=== PATIENT | female | born 1995 | race American Indian/Alaskan Native ===

== ENCOUNTER 2016-07-06 20:00 | Emergency (ER) | payer SELFPAY ==
[2016-07-06 21:02] VITALS: BP 136/81
[2016-07-06 22:10] LABS: Bilirubin,Urine NEG (Negative); Blood,Urine SM (Negative); Ketones,Urine 80 mg/dL (Negative); Leukocyte Esterase,Urine MOD (Negative); Mucus,Urine 3+ /HPF; Nitrite,Urine NEG (Negative)
[2016-07-06 22:34] LABS: Basophils % (Auto) 0.1 % (0.0-1.8); Eosinophils % (Auto) 0.2 % (0.0-4.3); Hematocrit 42.2 % (30.3-42.9); Hemoglobin 14.1 gm/dl (10.1-14.3); Mean Corpuscular HGB Conc 34 % (30-34); Mean Corpuscular Hemoglobin 31 pg (28-32); Mean Corpuscular Volume 93 fl (79-97); Platelet Count 268 K/mm3 (140-440); Red Blood Count 4.53 M/mm3 (3.65-5.03); Red Cell Distribution Width 13.2 % (13.2-15.2); White Blood Count 10.9 K/mm3 (4.5-11.0)
[2016-07-06 22:56] LABS: Alanine Aminotransferase 46 units/L (7-56); Albumin 4.3 g/dL (3.9-5); Albumin/Globulin Ratio 1.2 %; Alkaline Phosphatase 73 units/L (35-129); Anion Gap 20 mmol/L; Bilirubin,Total 0.6 mg/dL (0.1-1.2); Blood Urea Nitrogen 6 mg/dL (7-17); Calcium 9.2 mg/dL (8.4-10.2); Carbon Dioxide 25 mmol/L (22-30); Chloride 97.3 mmol/L (98-107); Glucose 85 mg/dL (65-100); Lipase 11 units/L (13-60); Potassium 3.4 mmol/L (3.6-5.0); Sodium 139 mmol/L (137-145); Total Protein 7.8 g/dL (6.3-8.2)
== END 2016-07-07 01:09 | disposition left against medical advice (07) ==
LOC: ED 20:00
DX: R10.9 Unspecified abdominal pain (principal); R11.2 Nausea with vomiting, unspecified; R19.7 Diarrhea, unspecified; Z53.21 Procedure and treatment not carried out due to patient leaving prior to being seen by health care provider
CPT/HCPCS: 36415; 80053; 81001; 81025; 83690; 85025

== ENCOUNTER 2017-12-01 21:53 | Emergency (ER) | payer SELFPAY ==
[2017-12-01] MEDS ORDERED: TYLENOL #3 PO ONE (22:23)
[2017-12-01] MEDS ORDERED: MOTRIN PO ONE (22:23)
--- NOTE | 2017-12-01 22:26 | Emergency Department Report ---
ED ENT HPI - General Chief complaint: Dental/Oral Stated complaint: TOOTH ACHE Time Seen by Provider: 12/01/17 22:21 Source: patient Mode of arrival: Ambulatory Limitations: No Limitations - History of Present Illness Initial comments: 22-year-old female presents with complaint of one year of intermittent right lower and left upper toothache. Patient has several dental cavities which she has not yet had addressed by dentist. Patient is awake alert and oriented 3 no audible wheezing or stridor no trismus or drooling on exam. Denies fevers chills nausea or vomiting. Patient states she is attempting to make outpatient follow-up with a dentist to have her cavities addressed. MD complaint: tooth pain Onset/Timin -: year(s) Location: tooth # 1 - Cavity 2 - Cavity Severity: severe Severity scale (0 -10): 7 Quality: aching Consistency: intermittent Worsens with: eating Context- Dental: history of dental caries, poor dental care Associated Symptoms: toothache - Related Data Previous Rx's Medication Instructions Recorded Last Taken Type Acetaminophen/Codeine [Tylenol 1 tab PO Q6H PRN #12 tab 12/01/17 Unknown Rx /Codeine # 3 tab] Amoxicillin [Trimox CAP] 500 mg PO Q8H #30 capsule 12/01/17 Unknown Rx Benzocaine [Oral Pain Reliever] 1 applicatio MM TID PRN #1 12/01/17 Unknown Rx cream..g. Chlorhexidine Mouthwash [Peridex] 15 ml MM BID #1 bottle 12/01/17 Unknown Rx Ibuprofen [Motrin] 600 mg PO Q8H PRN #30 tablet 12/01/17 Unknown Rx Allergies Allergy/AdvReac Type Severity Reaction Status Date / Time No Known Allergies Allergy Unverified 07/06/16 21:00 ED Dental HPI - General Chief complaint: Dental/Oral Stated complaint: TOOTH ACHE Time Seen by Provider: 12/01/17 22:21 Source: patient Mode of arrival: Ambulatory Limitations: No Limitations - Related Data Previous Rx's Medication Instructions Recorded Last Taken Type Acetaminophen/Codeine [Tylenol 1 tab PO Q6H PRN #12 tab 12/01/17 Unknown Rx /Codeine # 3 tab] Amoxicillin [Trimox CAP] 500 mg PO Q8H #30 capsule 12/01/17 Unknown Rx Benzocaine [Oral Pain Reliever] 1 applicatio MM TID PRN #1 12/01/17 Unknown Rx cream..g. Chlorhexidine Mouthwash [Peridex] 15 ml MM BID #1 bottle 12/01/17 Unknown Rx Ibuprofen [Motrin] 600 mg PO Q8H PRN #30 tablet 12/01/17 Unknown Rx Allergies Allergy/AdvReac Type Severity Reaction Status Date / Time No Known Allergies Allergy Unverified 07/06/16 21:00 ED Review of Systems ROS: Stated complaint: TOOTH ACHE Other details as noted in HPI Constitutional: denies: chills, fever Eyes: denies: eye pain, eye discharge, vision change ENT: dental pain. denies: ear pain, throat pain Respiratory: denies: cough, shortness of breath, wheezing Cardiovascular: denies: chest pain, palpitations Endocrine: no symptoms reported Gastrointestinal: denies: abdominal pain, nausea, diarrhea Genitourinary: denies: urgency, dysuria, discharge Musculoskeletal: denies: back pain, joint swelling, arthralgia Skin: denies: rash, lesions Neurological: denies: headache, weakness, paresthesias Psychiatric: denies: anxiety, depression Hematological/Lymphatic: denies: easy bleeding, easy bruising ED Past Medical Hx - Past Medical History Previous Medical History?: No - Surgical History Past Surgical History?: No - Social History Smoking Status: Current Every Day Smoker Substance Use Type: None, Marijuana - Medications Home Medications: Home Medications Medication Instructions Recorded Confirmed Last Taken Type Acetaminophen/Codeine [Tylenol 1 tab PO Q6H PRN #12 tab 12/01/17 Unknown Rx /Codeine # 3 tab] Amoxicillin [Trimox CAP] 500 mg PO Q8H #30 capsule 12/01/17 Unknown Rx Benzocaine [Oral Pain Reliever] 1 applicatio MM TID PRN #1 12/01/17 Unknown Rx cream..g. Chlorhexidine Mouthwash [Peridex] 15 ml MM BID #1 bottle 12/01/17 Unknown Rx Ibuprofen [Motrin] 600 mg PO Q8H PRN #30 tablet 12/01/17 Unknown Rx ED Physical Exam - General Limitations: No Limitations General appearance: alert, in no apparent distress - Head Head exam: Present: atraumatic, normocephalic - Eye Eye exam: Present: normal appearance, PERRL, EOMI - ENT ENT exam: Present: mucous membranes moist - Expanded ENT Exam Expanded Teeth exam: Present: dental caries, fractured tooth #, dental tenderness # 1 - Dental Tenderness (significant cavity to pulp of tooth here) 2 - Dental Tenderness (large cavity in this molar here) - Neck Neck exam: Present: normal inspection - Respiratory Respiratory exam: Present: normal lung sounds bilaterally. Absent: respiratory distress - Cardiovascular Cardiovascular Exam: Present: regular rate, normal rhythm. Absent: systolic murmur, diastolic murmur, rubs, gallop - GI/Abdominal GI/Abdominal exam: Present: soft, normal bowel sounds - Extremities Exam Extremities exam: Present: normal inspection - Back Exam Back exam: Present: normal inspection - Neurological Exam Neurological exam: Present: alert, oriented X3 - Psychiatric Psychiatric exam: Present: normal affect, normal mood - Skin Skin exam: Present: warm, dry, intact, normal color. Absent: rash ED Course Vital Signs 12/01/17 22:01 Temperature 98.3 F Pulse Rate 99 H Respiratory 14 Rate Blood Pressure 117/66 O2 Sat by Pulse 99 Oximetry ED Medical Decision Making - Medical Decision Making A/P: dental cavities, toothache, periodontal disease 1- Motrin when necessary, amoxicillin ten-day course, Orajel when necessary, Peridex mouthwash daily basis, short course codeine when necessary, 2- I provided patient with information for multiple dental clinics to follow up and stressed the importance of dental follow-up as he has multiple cavities that require dental fixation or instrumentation 3- no clinical signs of facial abscess, no Cesar's angina, no induration or cellulitis of floor of mouth or tongue 4- patient able to tolerate by mouth before discharge 5- no signs of facial infection. Advised patient that if he does not take antibiotics with follow-up with a dentist as soon as possible that a can result in potentially serious or dangerous infection to develop in jaw or face. Patient states that he understood these instructions. I advised patient to return to the ED for any persistent unrelenting nausea or vomiting fever or chills or headaches. Critical care attestation.: If time is entered above; I have spent that time in minutes in the direct care of this critically ill patient, excluding procedure time. ED Disposition Clinical Impression: Dental cavities, Toothache, Periodontal disease Disposition: TO HOME OR SELFCARE Is pt being admited?: No Does the pt Need Aspirin: No Condition: Stable Instructions: Dental Caries (ED), Toothache (ED) Prescriptions: Acetaminophen/Codeine [Tylenol /Codeine # 3 tab] 1 tab PO Q6H PRN #12 tab PRN Reason: Toothache Amoxicillin [Trimox CAP] 500 mg PO Q8H #30 capsule Benzocaine [Oral Pain Reliever] 1 applicatio MM TID PRN #1 cream..g. PRN Reason: Toothache Chlorhexidine Mouthwash [Peridex] 15 ml MM BID #1 bottle Ibuprofen [Motrin] 600 mg PO Q8H PRN #30 tablet PRN Reason: Pain Referrals: [facility] [Outside] - 3-5 Days [facility] [Outside] - 3-5 Days Forms: Accompanied Note Time of Disposition: 22:25
[2017-12-01 22:41] VITALS: BP 146/82
== END 2017-12-01 22:39 | disposition home or self-care (01) ==
LOC: ED 21:53
DX: K02.9 Dental caries, unspecified (principal); K05.6 Periodontal disease, unspecified; F17.200 Nicotine dependence, unspecified, uncomplicated; F12.10 Cannabis abuse, uncomplicated
CPT/HCPCS: 99282

== ENCOUNTER 2019-05-28 20:51 | Inpatient (IN) | payer OTHER ==
[2019-05-28] MEDS: LACTATED RINGERS 1,000 ML IV SCH (22:15)
[2019-05-28] MEDS ORDERED: MINERAL OIL 30 ML ORAL LIQD PO PRN (22:44)
[2019-05-28] MEDS ORDERED: TERBUTALINE 1 MG/1 ML INJ IVP PRN (22:44)
[2019-05-28] MEDS ORDERED: LIDOCAINE (2%) 20 MG/1 ML VIAL 20 ML MDV INFILTRATI ONE (22:44)
[2019-05-28] MEDS ORDERED: NALOXONE 0.4 MG/1 ML INJ IV PRN (22:44)
[2019-05-28] MEDS ORDERED: ePHEDrine SULFATE 50 MG/1 ML INJ IV PRN (22:44)
[2019-05-28] MEDS ORDERED: DINOPROSTONE 10 MG VAG SUPP VG ONE (22:44)
[2019-05-28] MEDS ORDERED: fentaNYL 100 MCG/2 ML INJ IV PRN (22:44)
[2019-05-28] MEDS ORDERED: TERBUTALINE 1 MG/1 ML INJ SUB-Q PRN (22:44)
[2019-05-28] MEDS ORDERED: ONDANSETRON 4 MG/2 ML INJ IV PRN (22:44)
[2019-05-28] MEDS ORDERED: OXYTOCIN DRIP 30 UNITS/500 ML BAG IV SCH ×2 (23:00)
[2019-05-28 23:02] LABS: Hematocrit 33.5 % (30.3-42.9); Hemoglobin 11.3 gm/dl (10.1-14.3); Mean Corpuscular HGB Conc 34 % (30-34); Mean Corpuscular Volume 93 fl (79-97); Platelet Count 286 K/mm3 (140-440); Red Blood Count 3.61 M/mm3 (3.65-5.03); Red Cell Distribution Width 13.5 % (13.2-15.2)
[2019-05-29] MEDS ORDERED: valACYclovir 500 MG TAB PO SCH (10:00)
[2019-05-29] MEDS: LACTATED RINGERS 1,000 ML IV SCH ×2 (10:00→21:01)
[2019-05-29] MEDS: BUTORPHANOL 2 MG/1 ML INJ IV PRN ×3 (10:35→18:11)
--- NOTE | 2019-05-29 11:46 | Event Note ---
Date: 05/29/19 (0833) Received call from RN reporting that Cervidil was removed secondary to ctxs q 1- 2 mins. Reports that FHTs remain category 2. Will assess pt once arrived to hospital.
--- NOTE | 2019-05-29 11:59 | History and Physical Report ---
History of Present Illness Date of examination: 05/29/19 (4510) Date of admission: 05/28/19 21:00 Chief complaint: IOL secondary to IUGR per APA recommendation History of present illness: 24 yo, at 38.6 wks gestation, initiated care with [facility] at 17.4 wks. Her has been complicated by bilateral breast masses, HSVII, gonorrhea, chlamydia and Trichomonas, rubella equivocal status, THC smoker, Vit D deficiency, marginal cord insertion/succenturiate lobe, IUGR and late entry to care. Her care was co-managed by [facility] ([facility]). She reports to [facility] for IOL secondary to IUGR per APA recommendation. She reports + FM. Denies any VB or LOF. Labs: O+, antibody negative; PAP smear normal; Rubella non-immune; VDRL negative; urine culture negative; HBsAg negative; HIV negative; platelets 299; HSVII positive; GC/Chlamydia/Trich all positive, (NESTOR negative on 04/14/19); 1 hr gtt 136, no 3 hr gtt recorded; GBS negative. Past History Past Medical History: no pertinent history Past Surgical History: other (, elective @ 20 wks (2 day procedure) age 16) [employer] History: chlamydia, gonorrhea, trichomonas, other (HSVII) Family/Genetic History: cancer (PGM; type unknown) - Obstetrical History Expected Date of Delivery: 06/06/19 Actual Gestation: 38 Week(s) 6 Day(s) : 2 Para: 0 Hx # Term Pregnancies: 0 Number of Pregnancies: 0 Spontaneous Abortions: 0 Induced : 1 Number of Living Children: 0 Medications and Allergies Allergies Allergy/AdvReac Type Severity Reaction Status Date / Time No Known Allergies Allergy Verified 05/28/19 22:36 Home Medications Medication Instructions Recorded Confirmed Last Taken Type Vit-Fe Fumar-FA [ 1 tab PO QDAY 05/28/19 05/28/19 05/28/19 09:00 History Vitamin] Valacyclovir HCl [Valtrex] 1,000 mg PO DAILY 05/28/19 05/28/19 05/28/19 09:00 History Active Meds: Active Medications Butorphanol Tartrate (Stadol) 2 mg IV Q2H PRN PRN Reason: Pain , Severe (7-10) Last Admin: 05/29/19 10:35 Dose: 2 mg Documented by: Ephedrine Sulfate (Ephedrine Sulfate) 10 mg IV Q2M PRN PRN Reason: Hypotension Fentanyl (Sublimaze) 100 mcg IV Q2H PRN PRN Reason: Labor Pain Oxytocin/Sodium Chloride (Pitocin/Ns 20 Unit/1000ml Drip) 20 units in 1,000 mls @ 125 mls/hr IV DIRECT JAMES Lactated Ringer's (Lactated Ringers) 1,000 mls @ 125 mls/hr IV DIRECT JAMES Last Admin: 05/29/19 10:00 Dose: 125 mls/hr Documented by: Oxytocin/Sodium Chloride (Pitocin/Ns 30 Unit/500ml) 30 units in 500 mls @ 1 mls/hr IV TITR JAMES; Protocol Last Titration: 05/29/19 11:06 Dose: 4 milliunits/min, 4 mls/hr Documented by: Oxytocin/Sodium Chloride (Pitocin/Ns 30 Unit/500ml) 30 units in 500 mls @ 0 mls/hr IV TITR JAMES; Protocol Mineral Oil (Mineral Oil) 30 ml PO QHS PRN PRN Reason: Constipation Naloxone HCl (Naloxone) 0.1 mg IV Q2MIN PRN PRN Reason: Res Rate </= 8 or 02 SAT < 92% Ondansetron HCl (Zofran) 4 mg IV Q8H PRN PRN Reason: Nausea And Vomiting Terbutaline Sulfate (Brethine) 0.25 mg SUB-Q ONCE PRN PRN Reason: Hyperstimulation/Hypertonicity Terbutaline Sulfate (Brethine) 0.25 mg IVP ONCE PRN PRN Reason: Hyperstimulation/Hypertonicity Valacyclovir HCl (Valtrex) 1,000 mg PO QDAY [facility] Last Admin: 05/29/19 10:58 Dose: 1,000 mg Documented by: Review of Systems All systems: negative - Vital Signs Vital signs: Vital Signs Temp Resp Pulse Ox 98.2 F 14 99 05/28/19 21:15 05/28/19 21:15 05/28/19 21:15 Temp Pulse Resp BP Pulse Ox 98.9 F 78 18 110/63 98 05/29/19 07:57 05/29/19 11:24 05/29/19 07:57 05/29/19 10:37 12/03/19 11:24 - Physical Exam Breasts: Positive: deferred Cardiovascular: Regular rate Lungs: Positive: Normal air movement Abdomen: Positive: other (gravid) Genitourinary (Female): Positive: normal external genitalia, normal perenium Uterus: Positive: enlarged (S<D) Extremities: Positive: normal Deep Tendon Reflex Grade: Normal +2 - Obstetrical FHR: category 1 Uterine Contraction Monitor Mode: External Cervical Dilatation: 1 Cervical Effacement Percentage: 50 station: -3 Uterine Contraction Pattern: Irregular Uterine Tone Measurement Phase: Resting Uterine Contraction Intensity: Mild Results Result Diagrams: 05/28/19 22:05 Abnormal lab results 05/28/19 Range/Units 22:05 WBC 13.9 H (4.5-11.0) K/mm3 RBC 3.61 L (3.65-5.03) M/mm3 All other labs normal. Assessment and Plan - Patient Problems (1) 38 weeks gestation of Current Visit: Yes Status: Acute (2) IUGR (intrauterine growth restriction) affecting care of mother Current Visit: Yes Status: Acute Plan to address problem: Admit to [facility] IOL, initiate Pitocin @ 2mu/min as tolerated IV pain meds as desired Epidural if desired once in active labor Anticipate (3) Late care affecting Current Visit: Yes Status: Acute (4) Umbilical cord, marginal insertion Current Visit: Yes Status: Acute (5) Placenta succenturiata Current Visit: Yes Status: Acute (6) Rubella non-immune status, antepartum Current Visit: Yes Status: Acute (7) HSV-2 seropositive Current Visit: Yes Status: Acute (8) Marijuana smoker Current Visit: Yes Status: Acute
[2019-05-29] MEDS ORDERED: PROMETHAZINE 25 MG TAB PO ONE (17:51)
--- NOTE | 2019-05-29 18:32 | Progress Note ---
Assessment and Plan - Patient Problems (1) 38 weeks gestation of Current Visit: Yes Status: Acute (2) IUGR (intrauterine growth restriction) affecting care of mother Current Visit: Yes Status: Acute Plan to address problem: Continue Pitocin @ 2mu/min as tolerated IV pain meds as desired Epidural if desired once in active labor Anticipate (3) Late care affecting Current Visit: Yes Status: Acute (4) Umbilical cord, marginal insertion Current Visit: Yes Status: Acute (5) Placenta succenturiata Current Visit: Yes Status: Acute (6) Rubella non-immune status, antepartum Current Visit: Yes Status: Acute (7) HSV-2 seropositive Current Visit: Yes Status: Acute (8) Marijuana smoker Current Visit: Yes Status: Acute (9) SROM (spontaneous rupture of membranes) Current Visit: Yes Status: Acute Plan to address problem: SROM at 1510, clear fluids Check temp hourly until delivery Subjective - Subjective Date of service: 05/29/19 Principal diagnosis: IOL Interval history: 24 yo, at 38.6 wks gestation, initiated care with [facility] at 17.4 wks. Her has been complicated by bilateral breast masses, HSVII, gonorrhea, chlamydia and Trichomonas, rubella equivocal status, THC smoker, Vit D deficiency, marginal cord insertion/succenturiate lobe, IUGR and late entry to care. Her care was co-managed by [facility] ([facility]). She reports to [facility] for IOL secondary to IUGR per APA recommendation. She reports + FM. Denies any VB or LOF. Labs: O+, antibody negative; PAP smear normal; Rubella non-immune; VDRL negative; urine culture negative; HBsAg negative; HIV negative; platelets 299; HSVII positive; GC/Chlamydia/Trich all positive, (NESTOR negative on 04/14/19); 1 hr gtt 136, no 3 hr gtt recorded; GBS negative. Patient reports: loss of fluid (SROM at 1510, clear fluids), movement normal, contractions, no vaginal bleeding Objective - Vital Signs Vital Signs: Vital Signs - 12hr 05/29/19 05/29/19 05/29/19 06:29 06:35 06:37 Temperature Pulse Rate 86 89 86 Respiratory Rate Blood Pressure Blood Pressure [Left] O2 Sat by Pulse 97 97 92 Oximetry 12/09/1205/29/19 05/29/19 06:38 06:40 06:45 Temperature Pulse Rate 93 H 85 93 H Respiratory Rate Blood Pressure 124/83 Blood Pressure [Left] O2 Sat by Pulse 99 97 Oximetry 05/29/19 05/29/19 05/29/19 06:50 06:55 07:00 Temperature Pulse Rate 89 82 88 Respiratory Rate Blood Pressure Blood Pressure [Left] O2 Sat by Pulse 99 98 97 Oximetry 05/29/19 05/29/19 05/29/19 07:05 07:10 07:15 Temperature Pulse Rate 88 98 H 88 Respiratory Rate Blood Pressure Blood Pressure [Left] O2 Sat by Pulse 96 96 96 Oximetry 05/29/19 05/29/19 05/29/19 07:20 07:25 07:30 Temperature Pulse Rate 87 97 H 102 H Respiratory Rate Blood Pressure Blood Pressure [Left] O2 Sat by Pulse 97 99 97 Oximetry 05/29/19 05/29/19 05/29/19 07:35 07:38 07:40 Temperature Pulse Rate 92 H 100 H 94 H Respiratory Rate Blood Pressure 93/55 Blood Pressure [Left] O2 Sat by Pulse 98 99 Oximetry 05/29/19 05/29/19 05/29/19 07:56 07:57 08:01 Temperature 98.9 F Pulse Rate 91 H 82 84 Respiratory 18 Rate Blood Pressure 117/70 Blood Pressure 117/70 [Left] O2 Sat by Pulse 98 99 99 Oximetry 05/29/19 05/29/19 05/29/19 08:06 08:08 08:11 Temperature Pulse Rate 87 64 87 Respiratory Rate Blood Pressure Blood Pressure [Left] O2 Sat by Pulse 99 93 99 Oximetry 05/29/19 05/29/19 05/29/19 08:16 08:31 08:36 Temperature Pulse Rate 88 95 H 122 H Respiratory Rate Blood Pressure Blood Pressure [Left] O2 Sat by Pulse 100 99 100 Oximetry 05/29/19 05/29/19 05/29/19 08:41 08:46 08:51 Temperature Pulse Rate 87 97 H 90 Respiratory Rate Blood Pressure Blood Pressure [Left] O2 Sat by Pulse 100 99 99 Oximetry 05/29/19 05/29/19 05/29/19 08:56 09:01 09:06 Temperature Pulse Rate 79 77 85 Respiratory Rate Blood Pressure Blood Pressure [Left] O2 Sat by Pulse 98 98 100 Oximetry 05/29/19 05/29/19 05/29/19 09:11 09:16 09:21 Temperature Pulse Rate 88 81 89 Respiratory Rate Blood Pressure Blood Pressure [Left] O2 Sat by Pulse 98 99 98 Oximetry 05/29/19 05/29/19 05/29/19 09:26 09:34 09:36 Temperature Pulse Rate 86 95 H 93 H Respiratory Rate Blood Pressure 103/59 Blood Pressure [Left] O2 Sat by Pulse 99 100 Oximetry 05/29/19 05/29/19 05/29/19 09:39 09:44 09:49 Temperature Pulse Rate 81 78 87 Respiratory Rate Blood Pressure 99/55 Blood Pressure [Left] O2 Sat by Pulse 99 99 99 Oximetry 05/29/19 05/29/19 05/29/19 09:54 09:59 10:04 Temperature Pulse Rate 82 78 77 Respiratory Rate Blood Pressure Blood Pressure [Left] O2 Sat by Pulse 99 99 100 Oximetry 05/29/19 05/29/19 05/29/19 10:09 10:14 10:19 Temperature Pulse Rate 85 76 72 Respiratory Rate Blood Pressure Blood Pressure [Left] O2 Sat by Pulse 100 99 100 Oximetry 05/29/19 05/29/19 05/29/19 10:24 10:29 10:34 Temperature Pulse Rate 85 91 H 82 Respiratory Rate Blood Pressure Blood Pressure [Left] O2 Sat by Pulse 99 100 100 Oximetry 05/29/19 05/29/19 05/29/19 10:37 10:39 10:44 Temperature Pulse Rate 83 74 76 Respiratory Rate Blood Pressure 110/63 Blood Pressure [Left] O2 Sat by Pulse 100 98 Oximetry 05/29/19 05/29/19 05/29/19 10:49 10:50 10:54 Temperature Pulse Rate 74 91 H 75 Respiratory Rate Blood Pressure Blood Pressure [Left] O2 Sat by Pulse 98 93 97 Oximetry 05/29/19 05/29/19 05/29/19 10:59 11:04 11:09 Temperature Pulse Rate 68 70 79 Respiratory Rate Blood Pressure Blood Pressure [Left] O2 Sat by Pulse 98 96 98 Oximetry 05/29/19 05/29/19 05/29/19 11:14 11:19 11:24 Temperature Pulse Rate 69 70 78 Respiratory Rate Blood Pressure Blood Pressure [Left] O2 Sat by Pulse 98 98 98 Oximetry 05/29/19 05/29/1919 11:48 11:53 11:58 Temperature Pulse Rate 72 85 72 Respiratory Rate Blood Pressure Blood Pressure [Left] O2 Sat by Pulse 98 99 98 Oximetry 05/29/19 05/29/19 05/29/19 12:03 12:08 12:13 Temperature Pulse Rate 71 74 68 Respiratory Rate Blood Pressure Blood Pressure [Left] O2 Sat by Pulse 99 99 99 Oximetry 05/29/19 05/29/19 05/29/19 12:18 12:23 12:28 Temperature Pulse Rate 71 71 69 Respiratory Rate Blood Pressure Blood Pressure [Left] O2 Sat by Pulse 99 98 99 Oximetry 05/29/19 05/29/19 05/29/19 12:33 12:38 12:43 Temperature Pulse Rate 65 68 68 Respiratory Rate Blood Pressure Blood Pressure [Left] O2 Sat by Pulse 100 100 99 Oximetry 05/29/19 05/29/19 05/29/19 12:48 12:54 12:55 Temperature Pulse Rate 77 70 67 Respiratory Rate Blood Pressure Blood Pressure [Left] O2 Sat by Pulse 90 88 94 Oximetry 05/29/19 05/29/19 05/29/19 13:00 13:05 13:10 Temperature Pulse Rate 71 78 64 Respiratory Rate Blood Pressure Blood Pressure [Left] O2 Sat by Pulse 100 99 99 Oximetry 05/29/19 05/29/19 05/29/19 13:15 13:20 13:24 Temperature 97.9 F Pulse Rate 71 75 77 Respiratory 18 Rate Blood Pressure Blood Pressure 98/58 [Left] O2 Sat by Pulse 100 100 98 Oximetry 05/29/19 05/29/19 05/29/19 13:25 13:30 13:35 Temperature Pulse Rate 70 61 68 Respiratory Rate Blood Pressure 98/58 Blood Pressure [Left] O2 Sat by Pulse 100 100 100 Oximetry 05/29/19 05/29/19 05/29/19 13:40 13:45 13:50 Temperature Pulse Rate 76 72 74 Respiratory Rate Blood Pressure Blood Pressure [Left] O2 Sat by Pulse 100 100 99 Oximetry 05/29/19 05/29/19 05/29/19 13:55 14:00 14:05 Temperature Pulse Rate 75 75 67 Respiratory Rate Blood Pressure Blood Pressure [Left] O2 Sat by Pulse 99 99 99 Oximetry 05/29/19 05/29/19 05/29/19 14:10 14:15 14:20 Temperature Pulse Rate 76 72 66 Respiratory Rate Blood Pressure Blood Pressure [Left] O2 Sat by Pulse 99 100 98 Oximetry 05/29/19 05/29/19 05/29/19 14:23 14:25 14:30 Temperature Pulse Rate 81 69 83 Respiratory Rate Blood Pressure Blood Pressure [Left] O2 Sat by Pulse 91 94 99 Oximetry 05/29/19 05/29/19 05/29/19 14:35 14:40 14:45 Temperature Pulse Rate 77 68 69 Respiratory Rate Blood Pressure Blood Pressure [Left] O2 Sat by Pulse 99 99 99 Oximetry 05/29/19 05/29/19 05/29/19 14:50 14:55 15:00 Temperature Pulse Rate 70 68 76 Respiratory Rate Blood Pressure Blood Pressure [Left] O2 Sat by Pulse 99 99 99 Oximetry 05/29/19 05/29/19 05/29/19 15:04 15:05 15:40 Temperature Pulse Rate 96 H 90 69 Respiratory Rate Blood Pressure Blood Pressure [Left] O2 Sat by Pulse 89 96 98 Oximetry 05/29/19 05/29/19 05/29/19 15:45 15:50 15:55 Temperature Pulse Rate 94 H 70 69 Respiratory Rate Blood Pressure Blood Pressure [Left] O2 Sat by Pulse 97 99 99 Oximetry 05/29/19 05/29/19 05/29/19 16:00 16:05 16:10 Temperature Pulse Rate 63 66 69 Respiratory Rate Blood Pressure Blood Pressure [Left] O2 Sat by Pulse 100 99 99 Oximetry 05/29/19 05/29/19 05/29/19 16:15 16:20 16:25 Temperature Pulse Rate 66 86 74 Respiratory Rate Blood Pressure Blood Pressure [Left] O2 Sat by Pulse 100 98 99 Oximetry 05/29/19 05/29/19 05/29/19 16:30 16:32 16:39 Temperature Pulse Rate 73 73 Respiratory Rate Blood Pressure Blood Pressure [Left] O2 Sat by Pulse 99 84 68 L Oximetry 05/29/19 05/29/19 05/29/19 16:40 16:45 16:50 Temperature Pulse Rate 68 81 105 H Respiratory Rate Blood Pressure Blood Pressure [Left] O2 Sat by Pulse 100 100 97 Oximetry 05/29/19 05/29/19 05/29/19 16:55 17:00 17:05 Temperature Pulse Rate 66 68 68 Respiratory Rate Blood Pressure Blood Pressure [Left] O2 Sat by Pulse 99 99 98 Oximetry 05/29/19 05/29/19 05/29/19 17:10 17:15 17:16 Temperature 97.8 F Pulse Rate 77 74 74 Respiratory 18 Rate Blood Pressure Blood Pressure 111/64 [Left] O2 Sat by Pulse 99 100 98 Oximetry 05/29/19 05/29/19 05/29/19 17:18 17:20 17:25 Temperature Pulse Rate 64 73 73 Respiratory Rate Blood Pressure 111/64 Blood Pressure [Left] O2 Sat by Pulse 98 98 Oximetry 05/29/19 05/29/19 05/29/19 17:30 17:35 17:40 Temperature Pulse Rate 91 H 91 H 73 Respiratory Rate Blood Pressure Blood Pressure [Left] O2 Sat by Pulse 98 100 100 Oximetry 05/29/19 05/29/19 05/29/19 17:45 17:50 17:55 Temperature Pulse Rate 69 70 90 Respiratory Rate Blood Pressure Blood Pressure [Left] O2 Sat by Pulse 100 100 100 Oximetry 05/29/19 05/29/19 05/29/19 18:00 18:05 18:07 Temperature Pulse Rate 91 H 76 69 Respiratory Rate Blood Pressure Blood Pressure [Left] O2 Sat by Pulse 100 100 85 Oximetry 05/29/19 05/29/19 05/29/19 18:10 18:11 18:15 Temperature Pulse Rate 92 H 92 H Respiratory 18 Rate Blood Pressure Blood Pressure [Left] O2 Sat by Pulse 100 100 Oximetry 05/29/19 05/29/19 18:20 18:25 Temperature Pulse Rate 108 H 77 Respiratory Rate Blood Pressure Blood Pressure [Left] O2 Sat by Pulse 96 98 Oximetry - Exam Breasts: deferred Cardiovascular: Normal S1 Lungs: Normal air movement FHR: category 1 Uterine Contraction Monitor Mode: External Cervical Dilatation: 2 (per RN) Cervical Effacement Percentage: 90 station: 0 Uterine Contraction Frequency (min): 4-6 Uterine Contraction Pattern: Irregular Uterine Tone Measurement Phase: Resting Uterine Contraction Intensity: Mild - Labs Labs: Abnormal Labs 05/28/19 22:05 WBC 13.9 H RBC 3.61 L Laboratory Results - last 24 hr 05/28/19 05/28/19 05/28/19 22:05 22:05 22:05 WBC 13.9 H RBC 3.61 L Hgb 11.3 Hct 33.5 MCV 93 MCH 31 MCHC 34 RDW 13.5 Plt Count 286 Syphilis IgG Antibody Non-reactive Blood Type O POSITIVE Antibody Screen Negative
[2019-05-29] MEDS ORDERED: LIDOCAINE (2%) 20 MG/1 ML VIAL 20 ML MDV INFILTRATI ONE (23:08)
[2019-05-29] MEDS: OXYTOCIN 20 UNIT/1000ML DRIP 20 UNITS/1,000 ML BAG IV SCH (23:20)
[2019-05-29] MEDS ORDERED: PROMETHAZINE 25 MG TAB PO PRN (23:57)
[2019-05-29] MEDS ORDERED: LANOLIN/ZINC/DIMETHICONE (LANSINOH) 7 GM TP PRN (23:57)
[2019-05-29] MEDS ORDERED: MAGNESIUM HYDROXIDE (MOM) ORAL LIQD UDC PO PRN (23:57)
[2019-05-29] MEDS ORDERED: diphenhydrAMINE 25 MG CAP PO PRN (23:57)
[2019-05-29] MEDS ORDERED: ONDANSETRON 4 MG/2 ML INJ IV PRN (23:57)
[2019-05-29] MEDS ORDERED: WITCH HAZEL/ GLYCERIN PAD TP PRN (23:57)
--- NOTE | 2019-05-30 00:09 | Procedure Note ---
OB Delivery Note - Delivery Date of Delivery: 05/29/19 (5230) Surgeon: VIRGILIO FELIZ (CNM) Estimated blood loss: 200cc - Vaginal Delivery presentation: vertex Delivery position: OA (with right compound hand) Delivery induction: cervidil Delivery augmentation: pitocin Delivery monitor: external FHT, external uterine Route of delivery: Delivery placenta: spontaneous (paul, disposed per hospital policy) Delivery cord: 3 umbilical vessels Episiotomy: none Delivery laceration: 1st degree (perineal, hemostasis maintained, no repair) Anesthesia: none Delivery comments: Arrived to room to find viable, alert, quiet, pink male on maternal chest. Cord was double clamped and cut after cessation of pulsation. Placenta delivered spontaneously, paul, disposed per hospital policy. Fundus firm @ U-1. Perineum with 1st degree laceration, hemostasis maintained, unrepaired per pt wishes. Mother and baby safe, stable and bonding well. - A at 1 minute: 8 at 5 minutes: 9 Gender: Male (Weight: 2684gms (5lbs 15ozs) 18.5 inches)
[2019-05-30] MEDS: OXYTOCIN 20 UNIT/1000ML DRIP 20 UNITS/1,000 ML BAG IV SCH (01:01)
[2019-05-30] MEDS: oxyCODONE /ACETAMINOPHEN 5-325MG TAB PO PRN ×2 (08:57→20:21)
[2019-05-30] MEDS: IBUPROFEN 600 MG TAB PO SCH ×3 (09:39→23:16)
[2019-05-30] MEDS: PRENATAL VIT27-FE FUMARATE-FOLIC ACID VIT TAB PO SCH (09:39)
[2019-05-30 12:02] LABS: Hematocrit 29.7 % (30.3-42.9); Hemoglobin 9.9 gm/dl (10.1-14.3)
--- NOTE | 2019-05-30 14:01 | Progress Note ---
Assessment and Plan A: PP Day #1 Asymptomatic Anemia P: Follow Routine Orders FeSO4 PO BID D/C Home in the AM RTO in 6 Weeks Subjective - Subjective Date of service: 05/30/19 Principal diagnosis: IOL Patient reports: appetite normal, voiding normally, pain well controlled, flatus, bowel movement, ambulating normally [place]: bottle feeding Objective - Vital Signs Latest vital signs: Vital Signs Temp Pulse Resp BP BP Pulse Ox 05/30/19 07:36 98.8 F 76 18 103/55 05/30/19 05:00 98.8 F 84 20 108/52 99 05/30/19 01:32 98.1 F 71 20 103/66 100 05/30/19 00:32 75 110/57 05/30/19 00:31 67 91 05/30/19 00:30 94 H 100 05/30/19 00:25 86 100 05/30/19 00:20 96 H 99 05/30/19 00:15 83 100 05/30/19 00:13 92 H 92 05/30/19 00:10 85 99 05/30/19 00:06 93 H 105/55 05/30/19 00:05 93 H 98 05/30/19 00:01 93 H 99/56 05/30/19 00:00 104 H 99 05/29/19 23:55 89 100 05/29/19 23:50 87 99 05/29/19 23:46 81 115/65 05/29/19 23:45 92 H 100 05/29/19 23:40 95 H 100 05/29/19 23:35 85 99 05/29/19 23:31 87 109/64 05/29/19 23:30 85 100 05/29/19 23:25 89 100 05/29/19 23:20 81 100 05/29/19 23:19 80 108/59 05/29/19 23:15 91 H 99 05/29/19 23:10 89 88 05/29/19 23:05 86 97 05/29/19 23:00 77 98 05/29/19 22:55 83 98 05/29/19 22:50 71 98 05/29/19 22:45 81 99 05/29/19 22:40 84 99 05/29/19 22:35 100 H 99 05/29/19 22:30 81 99 05/29/19 22:26 75 106/62 05/29/19 22:25 70 99 05/29/19 22:21 83 91 05/29/19 22:20 89 100 05/29/19 22:15 82 100 05/29/19 22:10 79 98 05/29/19 22:05 66 97 05/29/19 22:04 72 94 05/29/19 22:00 65 99 05/29/19 21:56 61 106/61 05/29/19 21:55 86 100 05/29/19 21:50 80 98 05/29/19 21:45 70 98 05/29/19 21:34 76 100 05/29/19 21:29 85 98 05/29/19 21:27 80 124/83 05/29/19 21:24 82 99 05/29/19 21:19 73 100 05/29/19 21:14 72 98 05/29/19 21:09 78 100 05/29/19 21:08 104 H 86 05/29/19 21:04 103 H 97 05/29/19 21:03 97.6 F 89 18 111/59 97 05/29/19 20:59 80 99 05/29/19 20:57 100 H 111/59 94 05/29/19 20:54 81 100 05/29/19 20:49 69 98 05/29/19 20:44 78 100 05/29/19 20:39 88 97 05/29/19 20:34 100 H 98 05/29/19 20:29 89 96 05/29/19 20:24 77 98 05/29/19 20:19 84 98 05/29/19 20:14 102 H 98 05/29/19 20:09 71 100 05/29/19 20:06 78 91 05/29/19 20:04 78 99 05/29/19 19:59 91 H 97 05/29/19 19:58 93 05/29/19 19:46 78 98 05/29/19 19:45 84 94 05/29/19 19:41 69 100 05/29/19 19:39 88 90 05/29/19 19:36 85 97 05/29/19 19:31 80 98 05/29/19 19:26 80 97 05/29/19 19:21 72 99 05/29/19 19:16 78 99 05/29/19 19:11 74 99 05/29/19 19:06 88 100 05/29/19 19:01 76 98 05/29/19 18:55 113 H 97 05/29/19 18:50 81 99 05/29/19 18:45 77 99 05/29/19 18:40 89 96 05/29/19 18:38 94 H 90 05/29/19 18:35 87 98 05/29/19 18:30 92 H 97 05/29/19 18:25 77 98 05/29/19 18:20 108 H 96 05/29/19 18:15 92 H 100 05/29/19 18:11 18 05/29/19 18:10 92 H 100 05/29/19 18:07 69 85 05/29/19 18:05 76 100 05/29/19 18:00 91 H 100 05/29/19 17:55 90 100 05/29/19 17:50 70 100 05/29/19 17:45 69 100 05/29/19 17:40 73 100 05/29/19 17:35 91 H 100 05/29/19 17:30 91 H 98 05/29/19 17:25 73 98 05/29/19 17:20 73 98 05/29/19 17:18 64 111/64 05/29/19 17:16 97.8 F 74 18 111/64 98 05/29/19 17:15 74 100 05/29/19 17:10 77 99 05/29/19 17:05 68 98 05/29/19 17:00 68 99 05/29/19 16:55 66 99 05/29/19 16:50 105 H 97 05/29/19 16:45 81 100 05/29/19 16:40 68 100 05/29/19 16:39 68 L 05/29/19 16:32 73 84 05/29/19 16:30 73 99 05/29/19 16:25 74 99 05/29/19 16:20 86 98 05/29/19 16:15 66 100 05/29/19 16:10 69 99 05/29/19 16:05 66 99 05/29/19 16:00 63 100 05/29/19 15:55 69 99 05/29/19 15:50 70 99 05/29/19 15:45 94 H 97 05/29/19 15:40 69 98 05/29/19 15:05 90 96 05/29/19 15:04 96 H 89 05/29/19 15:00 76 99 05/29/19 14:55 68 99 05/29/19 14:50 70 99 05/29/19 14:45 69 99 05/29/19 14:40 68 99 05/29/19 14:35 77 99 05/29/19 14:30 83 99 05/29/19 14:25 69 94 05/29/19 14:23 81 91 05/29/19 14:20 66 98 05/29/19 14:15 72 100 05/29/19 14:10 76 99 05/29/19 14:05 67 99 05/29/19 14:00 75 99 Intake and Output 05/29/19 05/30/19 05/30/19 22:59 06:59 14:59 Intake Total 1043.734 797.917 480 Output Total 500 1300 Balance 543.734 -502.083 480 Intake: IV 1043.734 197.917 Lactated Ringers 1,000 ml 1000 @ 125 mls/hr IV DIRECT JAMES Rx#:[id number] PITOCin/NS 20 UNIT/1000ML 197.917 DRIP 20 units In 1,000 ml @ 125 mls/hr IV DIRECT JAMES Rx#:[id number] PITOCin/NS 30 UNIT/500ML 43.734 30 units In 500 ml @ 1 MILLIUNITS/MIN 1 mls/hr IV TITR JAMES Rx#:[id number] Oral 480 480 Intake, Free Water 120 Output: Urine 500 1300 Void 500 1300 Other: Total, Intake Amount 240 480 Total, Output Amount 400 800 # Voids Void 2 Estimated Blood Loss 200 - Exam Breasts: Present: normal Cardiovascular: Present: Regular rate Lungs: Present: Clear to auscultation, Normal air movement Abdomen: Present: normal appearance, soft, normal bowel sounds Uterus: Present: normal, firm, fundal height below umbilicus Extremities: Present: normal - Labs Labs: Abnormal lab results 05/30/19 Range/Units 11:26 Hgb 9.9 L (10.1-14.3) gm/dl Hct 29.7 L (30.3-42.9) %
--- NOTE | 2019-05-30 14:04 | Discharge Summary ---
Providers - Providers Date of Admission: 05/28/19 21:00 Date of discharge: 05/31/19 Attending physician: SHEFALI CRAIN MD Primary care physician: SHEFALI CRAIN MD Hospitalization Reason for admission: active labor Delivery: Episiotomy: none Laceration: 1st degree Other procedures: none complications: none Discharge diagnosis: IUP at term delivered [place] baby: male Condition at discharge: Good Disposition: DC-01 TO HOME OR SELFCARE Plan - Provider Discharge Summary Activity: routine, no sex for 6 weeks, no heavy lifting 4 weeks, no strenuous exercise Diet: routine Instructions: routine Additional instructions: [] Smoking cessation referral if applicable(refer to patient education folder for contact #) [] Refer to [facility] Booklet Call your doctor immediately for: * Fever > 100.5 * Heavy vaginal bleeding ( >1 pad per hour) * Severe persistent headache * Shortness of breath * Reddened, hot, painful area to leg or breast * Drainage or odor from incision. * Keep incision clean and dry at all times and follow doctor's instructions regarding bathing/showering - Follow up plan Follow up: SHEFALI CRAIN MD [Primary Care Provider] - 6 Weeks
[2019-05-30] MEDS: FERROUS SULFATE 325 MG TAB PO SCH (23:17)
[2019-05-31] MEDS: IBUPROFEN 600 MG TAB PO SCH ×2 (05:30→12:00)
[2019-05-31] MEDS: FERROUS SULFATE 325 MG TAB PO SCH (10:09)
[2019-05-31] MEDS: PRENATAL VIT27-FE FUMARATE-FOLIC ACID VIT TAB PO SCH (10:09)
[2019-05-31 16:46] VITALS: BP 127/60
== END 2019-05-31 17:00 | disposition home or self-care (01) | DRG 775 ==
LOC: TRG 20:51 → LD 21:00 → OB 05-30 02:09
PROVIDERS: ADMIT Obstetrics & Gynecology; ATTEND Obstetrics & Gynecology
PROC: 3E033VJ Introduction of Other Hormone into Peripheral Vein, Percutaneous Approach (ICD-10-PCS; 2019-05-28)
PROC: 10E0XZZ Delivery of Products of Conception, External Approach (ICD-10-PCS; principal; 2019-05-30)
DX: O36.5930 Maternal care for other known or suspected poor fetal growth, third trimester, not applicable or unspecified (principal); O69.89X0 Labor and delivery complicated by other cord complications, not applicable or unspecified; O99.324 Drug use complicating childbirth; O32.6XX0 Maternal care for compound presentation, not applicable or unspecified; O70.0 First degree perineal laceration during delivery; F12.90 Cannabis use, unspecified, uncomplicated; Z3A.38 38 weeks gestation of pregnancy; Z37.0 Single live birth; Z80.9 Family history of malignant neoplasm, unspecified; O90.81 Anemia of the puerperium
CPT/HCPCS: 36415; 59200; 85014; 85018; 85027; 86592; 86850; 86900; 86901; G0378; J0595; J2590; J3010; J7120; Q0169

== ENCOUNTER 2021-03-11 04:52 | Emergency (ER) | payer OTHER ==
--- NOTE | 2021-03-11 04:54 | Event Note ---
ED Screening Note ED Screening Note: I briefly evaluated patient. She is alert and oriented x4. She refuses treatment in emergency department. She understands the risk of and further disability.
== END 2021-03-11 05:00 | disposition left against medical advice (07) ==
LOC: ED 04:52
DX: R40.4 Transient alteration of awareness (principal); Z53.21 Procedure and treatment not carried out due to patient leaving prior to being seen by health care provider

== ENCOUNTER 2021-08-21 22:44 | Emergency (ER) | payer OTHER ==
[2021-08-22 00:43] VITALS: BP 121/76
[2021-08-22 00:55] LABS: Bilirubin,Urine NEG (Negative); Blood,Urine NEG (Negative); Color,Urine Amber (Yellow); Mucus,Urine 2+ /HPF; Urobilinogen,Urine < 2.0 mg/dL (<2.0)
[2021-08-22 01:44] LABS: Basophils % (Auto) 0.3 % (0.0-1.8); Eosinophils # (Auto) 0.1 K/mm3 (0.0-0.4); Eosinophils % (Auto) 0.8 % (0.0-4.3); Hematocrit 45.2 % (30.3-42.9); Hemoglobin 14.8 gm/dl (10.1-14.3); Lymphocytes % (Auto) 19.4 % (13.4-35.0); Mean Corpuscular HGB Conc 33 % (30-34); Mean Corpuscular Volume 93 fl (79-97); Monocytes # (Auto) 0.8 K/mm3 (0.0-0.8); Monocytes % (Auto) 7.5 % (0.0-7.3); Platelet Count 331 K/mm3 (140-440); Red Blood Count 4.85 M/mm3 (3.65-5.03)
[2021-08-22 01:47] LABS: Alanine Aminotransferase 30 units/L (7-56); Albumin 4.7 g/dL (3.9-5); Blood Urea Nitrogen 6 mg/dL (7-17); Calcium 10.5 mg/dL (8.4-10.2); Hemolysis Index 3
[2021-08-22 01:50] LABS: BUN/Creatinine Ratio 9
--- NOTE | 2021-08-22 02:49 | Emergency Department Report ---
ED General Adult HPI - General Chief complaint: Abdominal Pain Stated complaint: VOMITING/ABD PAIN Source: patient Mode of arrival: Ambulatory Limitations: No Limitations - History of Present Illness Initial comments: Patient is a 26-year-old -Citizen Of [place] female with no past medical history presents to the ED with complaint of acute onset persistent generalized weakness, lack of appetite for the last 1 week. Patient states that her symptoms have been persistent and worse especially in the last 4 days. Patient states that she is concerned that she may be losing a lot of weight because of lack of appetite. Patient denies abdominal pain, nausea and vomiting, diarrhea, dizziness, syncope, cough, sore throat, nasal and sinus congestion, dysuria, urinary frequency and urgency or vaginal bleeding. MD Complaint: Generalized weakness, lack of appetite -: Sudden, days(s), week(s) (1) Radiation: non-radiation Severity scale (0 -10): 3 Consistency: intermittent Improves with: none Worsens with: none Associated Symptoms: denies other symptoms, loss of appetite, malaise, weakness. denies: confusion, chest pain, cough, diaphoresis, fever/chills, headaches, nausea/vomiting, rash, seizure, shortness of breath, syncope Treatments Prior to Arrival: none - Related Data Home Medications Medication Instructions Recorded Confirmed Last Taken Vit-Fe Fumar-FA [ 1 tab PO QDAY 05/28/19 05/28/19 05/28/19 09:00 Vitamin] Valacyclovir HCl [Valtrex] 1,000 mg PO DAILY 05/28/19 05/28/19 05/28/19 09:00 Allergies Allergy/AdvReac Type Severity Reaction Status Date / Time No Known Allergies Allergy Verified 05/28/19 22:36 ED Review of Systems ROS: Stated complaint: VOMITING/ABD PAIN Other details as noted in HPI Constitutional: malaise, weakness. denies: chills, fever Eyes: denies: eye pain, eye discharge, vision change ENT: denies: ear pain, throat pain Respiratory: denies: cough, shortness of breath, wheezing Cardiovascular: denies: chest pain, palpitations Endocrine: no symptoms reported Gastrointestinal: denies: abdominal pain, nausea, vomiting, diarrhea Genitourinary: denies: urgency, dysuria, discharge Musculoskeletal: denies: back pain, joint swelling, arthralgia Skin: denies: rash, lesions Neurological: denies: headache, weakness, paresthesias Psychiatric: anxiety. denies: depression, auditory hallucinations, suicidal thoughts Hematological/Lymphatic: denies: easy bleeding, easy bruising ED Past Medical Hx - Past Medical History Hx Hypertension: No Hx Congestive Heart Failure: No Hx Diabetes: No Hx Deep Vein Thrombosis: No Hx Renal Disease: No Hx Sickle Cell Disease: No Hx Seizures: No Hx Asthma: No Hx COPD: No Hx HIV: No - Surgical History Past Surgical History?: Yes Additional Surgical History: Breast - Social History Smoking Status: Never Smoker - Medications Home Medications: Home Medications Medication Instructions Recorded Confirmed Last Taken Type Vit-Fe Fumar-FA [ 1 tab PO QDAY 05/28/19 05/28/19 05/28/19 09:00 History Vitamin] Valacyclovir HCl [Valtrex] 1,000 mg PO DAILY 05/28/19 05/28/19 05/28/19 09:00 History ED Physical Exam - General Limitations: No Limitations General appearance: alert, in no apparent distress - Head Head exam: Present: atraumatic, normocephalic, normal inspection - Eye Eye exam: Present: normal appearance, PERRL, EOMI Pupils: Present: normal accommodation - ENT ENT exam: Present: normal exam, normal orophraynx, mucous membranes moist, TM's normal bilaterally, normal external ear exam - Neck Neck exam: Present: normal inspection, full ROM - Respiratory Respiratory exam: Present: normal lung sounds bilaterally. Absent: respiratory distress, wheezes, rales, rhonchi, chest wall tenderness, accessory muscle use, prolonged expiratory - Cardiovascular Cardiovascular Exam: Present: regular rate, normal rhythm, normal heart sounds. Absent: systolic murmur, diastolic murmur, rubs, gallop - GI/Abdominal GI/Abdominal exam: Present: soft, normal bowel sounds. Absent: tenderness, guarding, hyperactive bowel sounds, hypoactive bowel sounds, organomegaly, mass - Extremities Exam Extremities exam: Present: normal inspection, full ROM, normal capillary refill - Back Exam Back exam: Present: normal inspection, full ROM. Absent: tenderness, CVA tenderness (L), muscle spasm, paraspinal tenderness, vertebral tenderness - Neurological Exam Neurological exam: Present: alert, oriented X3, CN II-XII intact, normal gait, reflexes normal - Psychiatric Psychiatric exam: Present: normal affect, normal mood, anxious - Skin Skin exam: Present: warm, dry, intact, normal color. Absent: rash ED Course Vital Signs 08/22/21 00:24 Temperature 98.7 F Pulse Rate 70 Respiratory 16 Rate Blood Pressure 121/76 [Right] O2 Sat by Pulse 100 Oximetry ED Medical Decision Making - Lab Data Result diagrams: 08/22/21 01:15 08/22/21 01:15 - Medical Decision Making This is a 26-year-old -Citizen Of [place] female with no past medical history presents to the ED with complaint of acute onset persistent generalized weakness, lack of appetite for the last 1 week. Patient states that her symptoms have been persistent and worse especially in the last 4 days. Patient states that she is concerned that she may be losing a lot of weight because of lack of appetite. In the ED, patient is alert and oriented x3 and is not in any distress. Lab test results were reviewed and are all nonactionable. Physical exam is unremarkable. Patient was discharged home and advised to take multivitamins to enhance her appetite and to follow-up with her primary care physician in 5 to 7 days for reevaluation. Patient is advised return to the ED immediately if symptoms get worse. - Differential Diagnosis Viral syndrome; anxiety and depression Critical care attestation.: If time is entered above; I have spent that time in minutes in the direct care of this critically ill patient, excluding procedure time. ED Disposition Clinical Impression: Anxiety as acute reaction to exceptional stress, Lack of appetite, Generalized weakness Disposition: 01 HOME / SELF CARE / HOMELESS Is pt being admited?: No Does the pt Need Aspirin: No Condition: Stable Instructions: Abdominal Pain (ED), Generalized Anxiety Disorder, Adult, Weakness, [id number]-rn-[id number] Additional Instructions: All your lab test results were reviewed and are all nonactionable. Take multivitamins, fruits or vitamins and drink plenty of fluids. Follow- up with your primary care physician in 7 to 10 days for reevaluation or return to the ED immediately if symptoms get worse. Referrals: [facility] [Provider Group] - 7-10 days Time of Disposition: 02:49 Print Language: SYRIAN
== END 2021-08-22 03:10 | disposition home or self-care (01) ==
LOC: ED 22:44
DX: F41.1 Generalized anxiety disorder (principal); F43.0 Acute stress reaction; R63.0 Anorexia; R53.1 Weakness
CPT/HCPCS: 36415; 80053; 81001; 83690; 84702; 85025; 99283